=== PATIENT | male | born 1990 | race Caucasian/White ===

== ENCOUNTER 2018-02-22 13:03 | Emergency (ER) | payer OTHER ==
[2018-02-22 13:17] VITALS: TEMP 98.8
--- NOTE | 2018-02-22 14:39 | RAD ---
PROCEDURE: Right foot Radiographs. HISTORY: pain COMPARISON: None available. FINDINGS: BONES: No acute displaced fracture. JOINTS: No dislocation. SOFT TISSUES: Unremarkable. No evidence of radiopaque foreign body. OTHER FINDINGS: None. IMPRESSION: No acute displaced fracture, dislocation, or significant joint effusion identified. If symptoms persist, or if there is continued clinical concern, x-ray follow-up in 7-10 days should be considered.
--- NOTE | 2018-02-22 14:53 | C.PDOC ---
History Of Present Illness 27 year old male presents to the ED for evaluation of right foot pain which has been occurring intermittently for the past 2-3 months. Patient states his pain worsens when he puts prolonged pressure to the area such as with walking or standing for long periods of time. He has never been medically evaluated for his pain. Patient denies direct injury/trauma to the area, recent falls, or extremity numbness/weakness. Time Seen by Provider: 02/22/18 13:26 Chief Complaint (Nursing): Lower Extremity Problem/Injury History Per: Patient History/Exam Limitations: no limitations Onset/Duration Of Symptoms: Intermittent Episodes, Other (2-3 months ) Current Symptoms Are (Timing): Still Present Additional History Per: Patient - Ankle/Foot Description Of Injury: denies: Fell, Struck With Object, Struck Against Object Past Medical History Reviewed: Historical Data, Nursing Documentation, Vital Signs Vital Signs: Last Vital Signs Temp 98.8 F 02/22/18 13:14 Pulse 100 H 02/22/18 13:14 Resp 20 02/22/18 13:14 BP 132/88 02/22/18 13:14 Pulse Ox 99 02/22/18 13:14 - Medical History PMH: No Chronic Diseases Surgical History: No Surg Hx Family History: States: Unknown Family Hx - Social History Hx Alcohol Use: No Hx Substance Use: No - Immunization History Hx Tetanus Toxoid Vaccination: No Hx Influenza Vaccination: No Hx Pneumococcal Vaccination: No Review Of Systems Musculoskeletal: Positive for: Foot Pain (right, atraumatic ) Neurological: Negative for: Weakness, Numbness Physical Exam - Physical Exam Appears: Non-toxic, No Acute Distress Skin: Normal Color, Warm, Dry, No Ecchymosis, No Other (sores to foot ) Extremity: Normal ROM, No Tenderness, Capillary Refill (less than 2 seconds ), No Swelling, Other (flat foot noted ) Neurological/Psych: Oriented x3, Normal Speech, Normal Cognition, Normal Sensation Gait: Steady ED Course And Treatment O2 Sat by Pulse Oximetry: 99 (on RA) Pulse Ox Interpretation: Normal - Other Rad right foot XR X-Ray: Viewed By Me, Read By Radiologist Interpretation: PROCEDURE: Right foot Radiographs. HISTORY: pain. COMPARISON: None available. FINDINGS: BONES: No acute displaced fracture. JOINTS: No dislocation. SOFT TISSUES: Unremarkable. No evidence of radiopaque foreign body. OTHER FINDINGS: None. IMPRESSION: No acute displaced fracture, dislocation, or significant joint effusion identified. If symptoms persist, or if there is continued clinical concern, x-ray follow-up in 7-10 days should be considered. Progress Note: Right foot XR ordered. No acute displaced fracture, dislocation, or significant joint effusion identified. On reassessment, patient is resting comfortably and is showing no signs of distress. Patient is ambulatory with a steady gait and is stable for discharge. Patient is advised to follow up with a card placer (list provided) within a timely manner for further evaluation. Disposition - Disposition Referrals: Jone David DPM [Staff Provider] - Disposition: HOME/ ROUTINE Disposition Time: 14:52 Condition: STABLE Additional Instructions: Follow up with Sign Maker within 1-2 days. Return to ED if feel worse. Prescriptions: Ibuprofen [Motrin Tab] 600 mg PO Q8 #30 tab Instructions: Plantar Fasciitis Exercises Forms: [facility] (Chinese) - Clinical Impression Clinical Impression: Foot pain - PA / GEODETIC ENGINEER / Resident Statement MD/DO has reviewed & agrees with the documentation as recorded. - Scribe Statement The provider has reviewed the documentation as recorded by the Scribe (Keiry Lundberg) All medical record entries made by the Scribe were at my direction and personally dictated by me. I have reviewed the chart and agree that the record accurately reflects my personal performance of the history, physical exam, medical decision making, and the department course for this patient. I have also personally directed, reviewed, and agree with the discharge instructions and disposition.
[2018-02-22 15:03] VITALS: BP 122/74; PULSE 79; RESP 18
[2018-02-22 18:03] VITALS: O2SAT 99
== END 2018-02-22 15:02 | disposition home or self-care (01) ==
LOC: C.ER 13:03
DX: M79.671 Pain in right foot (principal)